=== PATIENT | female | born 1990 | race Hispanic/Latino ===

== ENCOUNTER 2018-11-06 19:33 | Emergency (ER) | payer BC ==
[2018-11-06 19:50] VITALS: BMI 25.4
[2018-11-06 19:56] VITALS: BP 143/77; PULSE 97; RESP 18; TEMP 98.6; O2SAT 98
[2018-11-06] MEDS ORDERED: Tdap Vaccine 0.5 ml Vial (10-64 yrs) IM ONE (20:22)
[2018-11-06] MEDS ORDERED: Lidocaine 1% Inj (20ml) IJ ONE (20:46)
[2018-11-06] MEDS ORDERED: Lidocaine 1% Inj (20ml) ONE (20:56)
--- NOTE | 2018-11-06 21:18 | ED PDOC ---
HPI: Wound Care - HPI Time Seen by Provider: 11/06/18 19:56 Chief Complaint (Nursing): Abnormal Skin Integrity Chief Complaint (Provider): Abnormal Skin Integrity History Per: Patient Exam Limitations: no limitations Onset/Duration Of Symptoms: Hrs (1x hour prior to arrival) Location Of Injury: Left: Hand (left 2nd digit) Additional Complaint(s): 28 year old female with a past medical history of hypothyroidism, viral meningitis, and shingles presents to the ED for an evaluation of a finger laceration that occurred 1x hour prior to arrival. Patient reports that she was trying to take the pit of an avocado out with a knife, when the knife slipped, sustaining a laceration to the left 2nd finger. Bleeding was controlled prior to arrival. Patient denies having pain. Otherwise: (-) numbness, (-) other complaints. Tetanus is not up to date. Last menstrual period 11/03/2018. PMD: Jenn ESCAMILLA in [place], [place] Past Medical History Reviewed: Historical Data, Nursing Documentation, Vital Signs Vital Signs: Last Vital Signs Temp 98.6 F 11/06/18 19:50 Pulse 97 H 11/06/18 19:50 Resp 18 11/06/18 19:50 BP 143/77 11/06/18 19:50 Pulse Ox 98 11/06/18 19:50 LUL Report Viewed: Yes - Medical History PMH: Hypothyroidism Other PMH: hx of viral meningitis and shingles - Family History Family History: States: No Known Family Hx - Social History Current smoker - smoking cessation education provided: No Alcohol: None Drugs: Denies - Immunization History Hx Tetanus Toxoid Vaccination: No - Home Medications Home Medications: Ambulatory Orders Medication Instructions Recorded RX: Bacitracin Ointment 1 applic TOP BID #1 tube 11/06/18 [Bacitracin] RX: Naproxen 500 mg PO BID PRN #20 tab 11/06/18 - Allergies Allergies/Adverse Reactions: Allergies Allergy/AdvReac Type Severity Reaction Status Date / Time No Known Allergies Allergy Verified 11/06/18 19:50 Review of Systems ROS Statement: Except As Marked, All Systems Reviewed And Found Negative Musculoskeletal: Positive for: Other (left 2nd digit laceration) Neurological: Negative for: Numbness Physical Exam - Reviewed Nursing Documentation Reviewed: Yes Vital Signs Reviewed: Yes - Physical Exam Comments: GENERAL APPEARANCE: Patient is awake, alert, oriented x 3, in no acute distress, resting comfortably. SKIN: Warm, dry; (-) cyanosis. CHEST AND RESPIRATORY: (-) rales, (-) rhonchi, (-) wheezes; breath sounds equal bilaterally. Respirations even and nonlabored. HEART AND CARDIOVASCULAR: (-) irregularity NECK: Supple, FROM ENT: Mucus membranes moist. Airway patent, (-) stridor. HAND: To the palmar aspect of distal proximal phalanx of left second digit: 1.25 cm superficial, linear diagonal laceration, (-) active bleeding, (-) edema, (-) ecchymosis, (+) mild tenderness, (+) sensation intact, (+) full ROM, (+) capillary refill intact. Remainder of hand and wrist nontender with full ROM. NEURO AND PSYCH: Mental status as above. Gait: steady. Speech: clear. (-) facial asymmetry - ECG O2 Sat by Pulse Oximetry: 98 (RA) Pulse Ox Interpretation: Normal Procedure: Wound Repair - Time Performed Time Performed: 21:05 - Time Out Time Out: Side verified, Site verified, Patient ID confirmed - Consent Obtained Consent obtained: Verbal - Performed by Performed by: Mid-level Provider (Camron NEAL) - Location Finger:: Left, Index Shape:: Linear Dimensions Length cm: 1.25 Depth:: Epidermis - Anesthetic Technique Anesthetic Technique: Local Local/Regional Anesthetic:: Lidocaine 1% - Debris Debris:: None - Irrigated Irrigated with ml of normal saline: 200 - Complexity Complexity:: Simple (one layer) - Wound repair method Sutures:: # (2), Size (5-0), Type (prolene), Technique (simple interrupted.) - Complications Complications: None - Patient tolerated procedure Patient Tolerated Procedure:: Well Medical Decision Making Medical Decision Makin Clinical impression: 28 year old female with a finger laceration. Initial plan: * adacel 10-64 yrs 0.5 ml IM once * lidocaine 1 % 20 ml 5 ml IJ * reevaluation 2104 Laceration repair performed by Camron NEAL. See procedure note. Suture removal in 1 week. Bacitracin, Telfa, cling dressing applied. Finger placed in aluminum finger splint to reduce flexion. Educated on wound care. Return parameters discussed. 2119 On re-evaluation, patient reports improvement of symptoms. On exam, patient remains AAOx3, in no acute distress. Vitals stable. Lab/Diagnostic results d/w the patient in great detail. Diagnosis of finger laceration d/w the patient. Based on history, exam and diagnostic results, plan will be for outpatient fol low up with PMD/hand. Patient instructed to follow-up with pmd / referral provided / the clinic in 1- 2 days without fail. Advised to take medication as prescribed. Return to the emergency room at any time for any new or worsening symptoms. Patient states she fully agrees with and understands discharge instructions. States that she agrees with the plan and disposition. Verbalized and repeated discharge instructions and plan. I have given the patient opportunity to ask any additional questions. Scribe Attestation: Documented byJayla Barbosa, acting as a scribe for Jayla Kingston Provider Scribe Attestation: All medical record entries made by the Scribe were at my direction and personally dictated by me. I have reviewed the chart and agree that the record accurately reflects my personal performance of the history, physical exam, medical decision making, and the department course for this patient. I have also personally directed, reviewed, and agree with the discharge instructions and disposition. Disposition - Clinical Impression Clinical Impression: Finger laceration - Patient ED Disposition Is Patient to be Admitted: No Counseled Patient/Family Regarding: Studies Performed, Diagnosis, Need For Followup, Rx Given - Disposition Referrals: primary, doctor [Other] Gabe Sandra MD [Medical Doctor] - Disposition: Routine/Home Disposition Time: 21:20 Condition: STABLE Additional Instructions: SUTURE REMOVAL IN 1 WEEK. The emergency medical care you received today was directed at your acute symptoms. If you were prescribed any medication, please fill it and take as directed. It may take several days for your symptoms to resolve. Return to the Emergency Department if your symptoms worsen, do not improve, or if you have any other problems. Please contact your doctor in 2 days for re-evaluation and follow up / or call one of the physicians/clinics you have been referred to that are listed on the Patient Visit Information form that is included in your discharge packet. Bring any paperwork you were given at discharge with you along with any medications you are taking to your follow up visit. Our treatment cannot replace ongoing medical care by a primary care provider (PCP) outside of the emergency department. Prescriptions: RX: Bacitracin Ointment [Bacitracin] 1 applic TOP BID #1 tube RX: Naproxen 500 mg PO BID PRN #20 tab PRN Reason: Pain, Moderate (4-7) Instructions: Wound Care (DC), Laceration Repair With Stitches (DC), Common Finger Injuries (DC) Forms: [facility] (Maltese), [facility] ED School/Work Excuse Print Language: ITALIAN - POA Present On Arrival: None
== END 2018-11-06 21:36 | disposition home or self-care (01) ==
LOC: H.ER 19:33
DX: S61.211A Laceration without foreign body of left index finger without damage to nail, initial encounter (principal); W26.0XXA Contact with knife, initial encounter; Y92.89 Other specified places as the place of occurrence of the external cause; E03.9 Hypothyroidism, unspecified